=== PATIENT | female | born 1970 | race African-American/Black ===

== ENCOUNTER 2018-10-12 11:06 | Emergency (ER) | payer BC ==
[2018-10-12 11:23] VITALS: BP 199/118
[2018-10-12] MEDS ORDERED: LISINOPRIL 10 MG TABLET PO ONE (11:51)
[2018-10-12] MEDS ORDERED: HYDROCHLOROTHIAZIDE 12.5 MG TABLET PO ONE (11:52)
[2018-10-12] MEDS ORDERED: OXYMETAZOLINE HCL 0.05% NASAL SPRAY 15 ML BOTTLE NASL ONE (11:56)
--- NOTE | 2018-10-12 11:57 | ER Document Report ---
ED General - General Chief Complaint: High Blood Pressure Stated Complaint: BLOOD PRESSURE ISSUES Time Seen by Provider: 10/12/18 11:51 Mode of Arrival: Ambulatory Information source: Patient Notes: 48-year-old female with hypertension presents from urgent care with elevated blood pressure and cold-like symptoms including nasal congestion, cough. Patient states that she has had cough, nasal congestion, sinus pressure for 1 week. She states the symptoms have improved but she decided to go to urgent care today where they found her to have markedly elevated blood pressure. Patient admits that she has been off of her lisinopril HCTZ medication for approximately 1 year due to insurance issues. Patient denies headache, visual changes, slurred speech, difficulty with ambulation, chest pain, difficulty with urination, abdominal pain. TRAVEL OUTSIDE OF THE [place] IN LAST 30 DAYS: No - HPI Onset: Other Onset/Duration: Gradual, Better Quality of pain: Achy Associated symptoms: Nonproductive cough, Rhinnorhea, Sore throat. denies: Body/muscle aches, Chest pain, Earache, Fever, Nausea, Vomiting, Shortness of breath Exacerbated by: Coughing Relieved by: Denies Similar symptoms previously: Yes Recently seen / treated by doctor: Yes - Related Data Allergies/Adverse Reactions: No Known Allergies Allergy (Verified 10/12/18 11:06) Past Medical History - General Information source: Patient, [facility] Records - Social History Smoking Status: Never Smoker Frequency of alcohol use: None Drug Abuse: None Lives with: Family Family History: Reviewed & Not Pertinent Patient has suicidal ideation: No Patient has homicidal ideation: No - Past Medical History Cardiac Medical History: Reports: Hx Hypertension Renal/ Medical History: Denies: Hx Peritoneal Dialysis Review of Systems - Review of Systems Constitutional: Recent illness EENT: Nose congestion Cardiovascular: denies: Chest pain, Dizziness Respiratory: Cough. denies: Short of breath, Wheezing Gastrointestinal: denies: Abdominal pain, Diarrhea, Nausea, Vomiting Genitourinary: denies: Dysuria, Flank pain Female Genitourinary: No symptoms reported Musculoskeletal: No symptoms reported Skin: denies: Rash Hematologic/Lymphatic: No symptoms reported Neurological/Psychological: denies: Headaches -: Yes All other systems reviewed and negative Physical Exam - Vital signs Vitals: Temp Pulse Resp BP Pulse Ox 98.6 F 70 16 199/118 H 98 10/12/18 11:20 10/12/18 11:20 10/12/18 11:20 10/12/18 11:20 10/12/18 11:20 - Notes Notes: PHYSICAL EXAMINATION: GENERAL: Well-appearing, well-nourished and in no acute distress. HEAD: Atraumatic, normocephalic. EYES: Pupils equal round and reactive to light, extraocular movements intact, conjunctiva are normal. ENT: Nares patent, oropharynx clear without exudates. Moist mucous membranes. Edematous nasal turbinates NECK: Normal range of motion, supple without lymphadenopathy LUNGS: Breath sounds clear to auscultation bilaterally and equal. No wheezes rales or rhonchi. HEART: Regular rate and rhythm without murmurs ABDOMEN: Soft, nontender, nondistended abdomen. No guarding, no rebound. No masses appreciated. Female : deferred Musculoskeletal: Normal range of motion, no pitting or edema. No cyanosis. NEUROLOGICAL: Cranial nerves grossly intact. Normal speech, normal gait. Normal sensory, motor exams PSYCH: Normal mood, normal affect. SKIN: Warm, Dry, normal turgor, no rashes or lesions noted. Course - Re-evaluation Re-evalutation: Temp Pulse Resp BP Pulse Ox 98.6 F 70 16 199/118 H 98 10/12/18 11:20 10/12/18 11:20 10/12/18 11:20 10/12/18 11:20 10/12/18 11:20 10/12/18 20:07 48-year-old female presents from urgent care after they found her blood pressure to be markedly elevated. States she went there because of recent upper respiratory symptoms which she reports has improved. Denies any headache, blurred vision, slurred speech, difficulty with ambulation, chest pain, shortness of breath, dysuria, nausea, vomiting. Patient advised to use Coricidin as this will not elevate her blood pressure. I have restarted her hydrochlorothiazide and lisinopril blood pressure medication. She did receive a dose in the department prior to discharge. Patient is comfortable with discharge home. She now has insurance and is planning on establishing primary care. Patient was evaluated and treated as appropriate for the patient's presenting symptoms and complaint, with consideration of any critical or life threatening conditions that may be associated with their obtained history and exam as noted above. All results were discussed with patient . Patient provided the opportunity to ask questions, and express concerns. Patient was educated on treatments based on their presumed diagnosis as noted above. At this time we will discharge the patient with return precautions and follow-up r ecommendations. Verbal discharge instructions given a the bedside. Medication warnings reviewed. Patient is in agreement with this plan and has verbalized understanding of return precautions. After careful consideration I feel that that patient can be safely discharged from the emergency department, they were advised to followup with a primary care physician in 2-3 days. Dictation on this chart was performed using voice recognition software and may result in unintended grammatical, spelling, syntax or errors. - Vital Signs Vital signs: Temp Pulse Resp BP Pulse Ox 98.6 F 70 16 199/118 H 98 10/12/18 11:20 10/12/18 11:20 10/12/18 11:20 10/12/18 11:20 10/12/18 11:20 Discharge - Discharge Clinical Impression: Nasal congestion Hypertension Qualifiers: Hypertension type: unspecified Qualified Code(s): I10 - Essential (primary) hypertension Condition: Good Disposition: HOME, SELF-CARE Instructions: High Blood Pressure ([facility]), Hydrochlorothiazide ([facility]), Upper Respiratory Illness ([facility]) Additional Instructions: Follow up with your [id number] hours for further care or return to the ED IMMEDIATELY if symptoms worsen or you have any concerns. If you cannot afford to follow up with your primary care physician a list of low cost clinics have been provided at the end of your discharge papers as well. Most prescribed medications have multiple side effects. The safest thing to do is when filling your prescription speak to your pharmacist regarding possible i nteractions with your normal home medications and over the counter medications such as Ibuprofen, Tylenol, Benadryl. If you experience any symptoms that cause you discomfort or concern you should discontinue the medication immediately and return to the emergency room or call your primary care physician. Prescriptions: Chlorphen/Dm/Acetaminophen/GG [Coricidin Hbp Day-Night Pack] 1 each PO ASDIR PRN #1 packet PRN Reason: Lisinopril/Hydrochlorothiazide [Lisinopril-Hctz 20-12.5 mg Tab] 1 each PO DAILY #30 tablet Forms: Elevated Blood Pressure, Return to Work
== END 2018-10-12 12:03 | disposition home or self-care (01) ==
LOC: ER 11:06
DX: I10 Essential (primary) hypertension (principal); T46.4X6A Underdosing of angiotensin-converting-enzyme inhibitors, initial encounter; T50.2X6A Underdosing of carbonic-anhydrase inhibitors, benzothiadiazides and other diuretics, initial encounter; Z91.120 Patient's intentional underdosing of medication regimen due to financial hardship; Z91.14 Patient's other noncompliance with medication regimen; R09.81 Nasal congestion; R05 Cough; J34.89 Other specified disorders of nose and nasal sinuses; J02.9 Acute pharyngitis, unspecified
CPT/HCPCS: 99283; J3490